=== PATIENT | male | born 2000 | race Hispanic/Latino ===

== ENCOUNTER 2021-12-19 22:04 | Emergency (ER) | payer SELFPAY ==
[2021-12-19] MEDS ORDERED: Dexamethasone 4 mg/ml Vial ONE (22:27)
[2021-12-19] MEDS ORDERED: Lidocaine Viscous Sol 2% 15 ml UD Cup ONE (22:27)
== END 2021-12-19 23:20 | disposition home or self-care (01) ==
LOC: CSHERS 22:04
DX: J02.9 Acute pharyngitis, unspecified (principal); R13.10 Dysphagia, unspecified
CPT/HCPCS: 87081; 87430; 99283; J1100